=== PATIENT | male | born 1965 | race Caucasian/White ===

== ENCOUNTER 2017-08-19 20:02 | Emergency (ER) | payer BC ==
[~2017-08-19] VITALS: Ht 180.3 cm; Wt 86.7 kg
[~2017-08-19 20:02] MED LIST: BENICAR40 MG PO; LIPITOR40 MG PO; NORVASC10 MG PO; PROTONIX40 MG PO; VESICARE10 MG PO
[2017-08-19] MEDS ORDERED: MOTRIN800 MG PO (21:37)
[2017-08-19 21:42] VITALS: BP 160/97
== END 2017-08-19 22:01 | disposition home or self-care (01) ==
LOC: EME 20:02
DX: S22.31XA Fracture of one rib, right side, initial encounter for closed fracture (principal); S80.11XA Contusion of right lower leg, initial encounter; S80.12XA Contusion of left lower leg, initial encounter; S50.01XA Contusion of right elbow, initial encounter; W11.XXXA Fall on and from ladder, initial encounter; E78.5 Hyperlipidemia, unspecified; I10 Essential (primary) hypertension; R73.03 Prediabetes
CPT/HCPCS: 71100; 73080; 73502; 73590; 99281; 99283

== ENCOUNTER 2017-08-22 12:21 | Emergency (ER) | payer BC ==
[~2017-08-22] VITALS: Ht 180.3 cm; Wt 86.4 kg
[~2017-08-22 12:21] MED LIST changes: +MOTRIN800 MG PO
[2017-08-22 15:33] VITALS: BP 129/77
== END 2017-08-22 15:34 | disposition home or self-care (01) ==
LOC: EME 12:21
DX: S43.401A Unspecified sprain of right shoulder joint, initial encounter (principal); S76.911A Strain of unspecified muscles, fascia and tendons at thigh level, right thigh, initial encounter; W11.XXXA Fall on and from ladder, initial encounter; I10 Essential (primary) hypertension; E78.5 Hyperlipidemia, unspecified; R73.03 Prediabetes
CPT/HCPCS: 73030; 73552; 99281; 99283